=== PATIENT | female | born 1945 | race Caucasian/White ===

== ENCOUNTER → 2017-04-25 | Outpatient (CLI) | payer MEDICARE ==
[~2017-04-25] MED LIST: ASCO10004 PO; LEVO25TA2 PO; MULT1TAB60 PO
== END | disposition home or self-care (01) ==
LOC: STAR 11:03
PROVIDERS: ATTEND Obstetrics & Gynecology Female Pelvic Medicine and Reconstructive Surgery
DX: Z01.818 Encounter for other preprocedural examination (principal); N39.3 Stress incontinence (female) (male); R94.31 Abnormal electrocardiogram [ECG] [EKG]
CPT/HCPCS: 93005

== ENCOUNTER 2017-04-29 13:44 | Day surgery (SDC) | payer MEDICARE ==
[~2017-04-29] VITALS: Ht 160 cm; Wt 69.5 kg
[~2017-04-29 13:44] MED LIST changes: +BUPIVACAINE/PF 0.25% ONE; +EPINEPHRINE 1 MG/ML, 1ML ONE; +NEOMY/POLYMYXIN B GU IRR. 1 ML IRRIG ONE
[2017-04-29] MEDS ORDERED: LACTATED RINGERS 1,000 ML IV SCH ×2 (14:07→14:13)
[2017-04-29 14:14] VITALS: BP 163/106
[2017-04-29] MEDS ORDERED: ACETAMINOPHEN 500 MG TABLET PO ONE (14:30)
[2017-04-29] MEDS ORDERED: OxyconTIN ER 10 MG TAB.ER PO ONE (14:30)
[2017-04-29] MEDS ORDERED: GABAPENTIN 300 MG CAPSULE PO ONE (14:30)
[2017-04-29] MEDS ORDERED: SCOPOLAMINE PATCH, 1.5MG PATCH.TD72 TD ONE (14:30)
[2017-04-29] MEDS ORDERED: LIDOCAINE 1%, 2ML SQ PRN (14:30)
[2017-04-29 15:16] LABS: BASOPHILS # (AUTO) 0.03 x10^3/uL (0-0.1); BASOPHILS % (AUTO) 1 % (0-1); EOSINOPHILS # (AUTO) 0.07 x10^3/uL (0-0.4); EOSINOPHILS % (AUTO) 1 % (1-7); LYMPHOCYTES # (AUTO) 2.48 x10^3/uL (1-3.4); LYMPHOCYTES % (AUTO) 36 % (22-44); MD NO; MEAN CORPUSCULAR HGB CONC 33.5 g/dL (32.4-35.8); MEAN CORPUSCULAR VOLUME 92.7 fL (80-100); MEAN PLATELET VOLUME 8.4 fL (7.4-10.4); MONOCYTES # (AUTO) 0.53 x10^3/uL (0.2-0.8); MONOCYTES % (AUTO) 8 % (2-9); NEUTROPHILS # (AUTO) 3.72 x10^3/uL (1.8-6.8); NEUTROPHILS % (AUTO) 54 % (42-75); PLATELET COUNT 352 x10^3/uL (130-400); RED BLOOD COUNT 4.42 x10^6/uL (3.82-5.3); RED CELL DISTRIBUTION WIDTH 13.5 % (9.6-15.2)
[2017-04-29 15:29] LABS: ALANINE AMINOTRANSFERASE 27 U/L (12-78); ANION GAP 9 mmol/L (5-15); CALCIUM 9.4 mg/dL (8.5-10.1); CHLORIDE 106 mmol/L (98-107)
[2017-04-29 15:31] LABS: ALKALINE PHOSPHATASE 71 U/L (45-117); BILIRUBIN,TOTAL 0.7 mg/dL (0.2-1.0)
[2017-04-29] MEDS ORDERED: FENTANYL PF 100 MCG/2ML ONE ×2 (16:16)
[2017-04-29] MEDS ORDERED: MIDAZOLAM 1 MG/ML, 2ML ONE (16:16)
[2017-04-29] MEDS ORDERED: PROPOFOL 10 MG/ML, 20ML ONE (16:17)
[2017-04-29] MEDS ORDERED: ROCURONIUM 10 MG/ML,10ML ONE (16:17)
[2017-04-29] MEDS ORDERED: NEOSTIGMINE 1 MG/ML, 10ML ONE (16:18)
[2017-04-29] MEDS ORDERED: GLYCOPYRROLATE 0.2MG/1ML, 5ML ONE (16:18)
[2017-04-29] MEDS ORDERED: SODIUM CHLORIDE 0.9% PF 10ML ONE (16:19)
[2017-04-29] MEDS ORDERED: CEFAZOLIN 1,000 MG ONE ×2 (16:19)
[2017-04-29] MEDS ORDERED: DEXAMETHASONE 4 MG/ML, 1ML ONE ×2 (17:01)
[2017-04-29] MEDS ORDERED: ONDANSETRON 2MG/ML, 2ML ONE (17:01)
[2017-04-29] MEDS ORDERED: FENTANYL PF 100 MCG/2ML IV PRN (17:30)
[2017-04-29] MEDS ORDERED: ONDANSETRON 2MG/ML, 2ML IVPush PRN (17:30)
[2017-04-29] MEDS ORDERED: OXYcodone 5 MG/5 ML ORAL.SOL UDC PO PRN (17:30)
[2017-04-29] MEDS ORDERED: hydrALAzine 20 MG/ML, 1ML IV PRN (17:30)
[2017-04-29] MEDS ORDERED: HYDROmorphone 1 MG/ML, 1ML IV PRN (17:30)
[2017-04-29] MEDS ORDERED: PROMETHAZINE 12.5 MG SUPP PR PRN (17:30)
[2017-04-29] MEDS ORDERED: morphine SULFATE 10 MG/ML, 1ML IV PRN (17:30)
[2017-04-29] MEDS ORDERED: LABETALOL 5MG/ML, 20ML IV PRN (17:30)
[2017-04-29] MEDS ORDERED: PROMETHAZINE 25 MG/ML, 1ML IV PRN (17:30)
[2017-04-29] MEDS ORDERED: MEPERIDINE/PF 25MG/0.5ML IVPush PRN (17:30)
[2017-04-29] MEDS ORDERED: OXYcodone 5 MG/5 ML ORAL.SOL UDC ONE (18:28)
== END 2017-04-29 20:40 | disposition home or self-care (01) ==
LOC: OR 13:44 → 4NOR 19:10 → OR 20:40
PROVIDERS: ATTEND Obstetrics & Gynecology Female Pelvic Medicine and Reconstructive Surgery
DX: N39.46 Mixed incontinence (principal); N81.89 Other female genital prolapse; N39.3 Stress incontinence (female) (male); E03.9 Hypothyroidism, unspecified; K56.609 Unspecified intestinal obstruction, unspecified as to partial versus complete obstruction; Z90.710 Acquired absence of both cervix and uterus; Z98.890 Other specified postprocedural states; Z72.89 Other problems related to lifestyle
CPT/HCPCS: 36415; 57260; 57288; 80053; 85025; C1781; J0690; J1100; J2250; J2405; J2704; J2710; J3010; J3490; J7120; J0171

== ENCOUNTER 2017-06-03 09:58 | Day surgery (SDC) | payer MEDICARE ==
[~2017-06-03] VITALS: Ht 160 cm; Wt 71.0 kg
[~2017-06-03 09:58] MED LIST changes: -BUPIVACAINE/PF 0.25% ONE; -EPINEPHRINE 1 MG/ML, 1ML ONE; -NEOMY/POLYMYXIN B GU IRR. 1 ML IRRIG ONE
[2017-06-03] MEDS ORDERED: LACTATED RINGERS 1,000 ML IV SCH (10:20)
[2017-06-03 10:23] VITALS: BP 161/87
[2017-06-03 10:27] VITALS: BP 161/87
[2017-06-03] MEDS ORDERED: LIDOCAINE-MPF 1%, 2ML INFIL ONE (10:30)
[2017-06-03] MEDS ORDERED: BUPIVACAINE/PF 0.25% ONE (11:09)
[2017-06-03] MEDS ORDERED: EPINEPHRINE 1 MG/ML, 1ML ONE (11:09)
[2017-06-03] MEDS ORDERED: NEOMY/POLYMYXIN B GU IRR. 1 ML IRRIG ONE (11:10)
[2017-06-03] MEDS ORDERED: CEFAZOLIN 1,000 MG ONE (12:19)
[2017-06-03] MEDS ORDERED: ONDANSETRON 2MG/ML, 2ML ONE (12:21)
[2017-06-03] MEDS ORDERED: METOCLOPRAMIDE 5 MG/ML, 2ML ONE (12:21)
[2017-06-03] MEDS ORDERED: DEXAMETHASONE 4 MG/ML, 1ML ONE (12:21)
[2017-06-03] MEDS ORDERED: PROPOFOL 10 MG/ML, 20ML ONE (12:21)
[2017-06-03] MEDS ORDERED: LIDOCAINE-MPF 2% ,5ML ONE (12:21)
[2017-06-03] MEDS ORDERED: LIDOCAINE GEL 2%, 5ML ONE (12:21)
[2017-06-03] MEDS ORDERED: FENTANYL PF 100 MCG/2ML ONE (12:21)
[2017-06-03] MEDS ORDERED: MIDAZOLAM 1 MG/ML, 2ML ONE (12:22)
[2017-06-03] MEDS ORDERED: GLYCOPYRROLATE 0.4 MG/2 ML, 2ML ONE (12:54)
[2017-06-03] MEDS ORDERED: LABETALOL 5MG/ML, 20ML IV PRN (13:30)
[2017-06-03] MEDS ORDERED: HYDROmorphone 1 MG/ML, 1ML IV PRN (13:30)
[2017-06-03] MEDS ORDERED: OXYcodone 5 MG/5 ML ORAL.SOL UDC PO PRN (13:30)
[2017-06-03] MEDS ORDERED: FENTANYL PF 100 MCG/2ML IV PRN (13:30)
[2017-06-03] MEDS ORDERED: MEPERIDINE/PF 25MG/0.5ML IVPush PRN (13:30)
[2017-06-03] MEDS ORDERED: MIDAZOLAM 1 MG/ML, 2ML IV PRN (13:30)
[2017-06-03] MEDS ORDERED: ONDANSETRON 2MG/ML, 2ML IVPush PRN (13:30)
== END 2017-06-03 14:50 ==
LOC: OUT 09:58
PROVIDERS: ATTEND Obstetrics & Gynecology Female Pelvic Medicine and Reconstructive Surgery
DX: N39.46 Mixed incontinence (principal); E03.9 Hypothyroidism, unspecified; R33.9 Retention of urine, unspecified; Z98.890 Other specified postprocedural states; Z90.710 Acquired absence of both cervix and uterus; Z72.89 Other problems related to lifestyle
CPT/HCPCS: 57288; J0171; J0690; J1100; J2250; J2405; J2704; J2765; J3010; J3490; J7120